=== PATIENT | female | born 1955 | race Caucasian/White ===

== ENCOUNTER → 2016-07-22 | Outpatient (CLI) | payer BC ==
--- NOTE | 2016-07-22 08:42 | US ---
EXAMINATION TYPE: US abdomen complete DATE OF EXAM: 07/22/2016 8:29 AM COMPARISON: NONE CLINICAL HISTORY: RUQ Pain. EXAM MEASUREMENTS: Liver Length: 16.7 cm Gallbladder Wall: 0.1 cm CBD: 0.4 cm Spleen: 7.7 cm Right Kidney: 10.8 x 4.2 x 4.8 cm Left Kidney: 10.9 x 5.0 x 4.9 cm cm Findings: Limited due to overlying bowel gas. Pancreas: Limited by bowel gas. The liver is homogenous. The intrahepatic portion of the IVC and proximal abdominal aorta are within normal limits. There is no evidence of cholelithiasis. Common bile duct is unremarkable. The visu alized portions of the pancreas are homogenous. The spleen is unremarkable. Kidneys are symmetric a nd free of hydronephrosis. No renal lesions are seen. IMPRESSION: 1. No acute process.
== END | disposition home or self-care (01) ==
LOC: RADUSWWP 07:27
PROVIDERS: ATTEND Family Medicine
DX: R10.11 Right upper quadrant pain (principal)
CPT/HCPCS: 76700

== ENCOUNTER → 2016-07-22 | Outpatient (CLI) | payer BC ==
--- NOTE | 2016-07-23 11:59 | MM ---
Reason for exam: screening (asymptomatic). Last mammogram was performed 3 years and 1 month ago. History: Patient is postmenopausal. Family history of breast cancer in mother. Benign left mammotome panel of the left breast, January 03, 2006. Taking estrogen beginning at age 52. Physical Findings: A clinical breast exam by your physician is recommended on an annual basis and results should be correlated with mammographic findings. MG Screening Mammo w CAD Bilateral CC and MLO view(s) were taken. Prior study comparison: June 18, 2013, bilateral digital screening mammo w/CAD. October 17, 2010, bilateral digital screening mammo w/CAD. The breast tissue is heterogeneously dense. This may lower the sensitivity of mammography. No significant changes when compared with prior studies. ASSESSMENT: Negative, BI-RAD 1 RECOMMENDATION: Routine screening mammogram of both breasts in 1 year.
== END | disposition home or self-care (01) ==
LOC: RADMAMWWP 07:23
PROVIDERS: ATTEND Obstetrics & Gynecology
DX: Z12.31 Encounter for screening mammogram for malignant neoplasm of breast (principal); Z80.3 Family history of malignant neoplasm of breast

== ENCOUNTER → 2018-02-26 | Day surgery (SDC) | payer BC ==
[2018-02-23 14:47] VITALS: BMI 24.7
[~2018-02-26] MED LIST: HYDROmorphone 1 MG/ML 1 ML SYRINGE IVP PRN; LACTATED RINGERS 1,000 ML IV SCH; LIDOCAINE 1% 20 ML VIAL (10MG/ML) FOR IV START INTRADERMA PRN; LIDOCAINE 1% INJ 10MG/ML (20 ML MDV) ONE; MIDAZOLAM 2 MG/2 ML VIAL IV PRN; PROPOFOL 10 MG/ML 20 ML VIAL IV ONE
--- NOTE | 2018-02-26 08:52 | P.PCN ---
Date of Procedure: 02/26/18 Procedure(s) Performed: Procedure: Esophagogastroduodenoscopy and biopsy. Preoperative diagnosis: Abdominal pain. Postoperative diagnosis: 1. Small sliding hiatal hernia with no obvious esophagitis or complicated reflux disease. 2. Mild antral gastritis. 3. Multiple biopsies obtained from the duodenum, antrum and esophagus. Preparation sedation: Was provided by anesthesia. Brief clinical history: The patient is a 62-year-old female who is scheduled for this evaluation because of upper abdominal complaints. She describes feeling distention and pressure after she eats but no change in bowel habits, nausea, vomiting or bleeding. She will have lost 5 pounds. She had a colonoscopy around 3 years ago which showed diverticulosis. This evaluation is to assess for potential ulcer disease, reflux disease or other pathology. Procedure: With the patient on her left lateral decubitus position and after informed consent and adequate sedation, I passed the Olympus-GIF 160 video upper endoscope through the cricopharyngeus down the esophagus. GE junction was around 36 cm from the incisors and there was a small sliding hiatal hernia but no obvious esophagitis or complicated reflux disease. The endoscope was then passed into the stomach which was insufflated with air and inspected in detail including the retroflex view in the cardia. There was minimal mottling and erythema in the antrum but no ulcers or erosions. Pyloric channel, duodenal bulb, post bulbar area and descending duodenum appeared within normal limits. Because of her symptoms, I obtained biopsies from the duodenum, antrum and esophagus then the endoscope was withdrawn. The patient tolerated the procedure well. Plan: The patient was reassured. She will follow-up with you as planned and I will be happy to see in the office if her symptoms persist.
[2018-02-26 08:55] VITALS: RESP 16
[2018-02-26 09:06] VITALS: BP 125/76; PULSE 60
== END | disposition home or self-care (01) ==
LOC: ORWHC2ENDO 07:28
DX: K29.50 Unspecified chronic gastritis without bleeding (principal); K44.9 Diaphragmatic hernia without obstruction or gangrene; K20.9 Esophagitis, unspecified; M19.90 Unspecified osteoarthritis, unspecified site; E78.5 Hyperlipidemia, unspecified; F41.9 Anxiety disorder, unspecified; Z79.899 Other long term (current) drug therapy
CPT/HCPCS: 88305; 43239; J2001; J2704

== ENCOUNTER → 2018-09-16 | Outpatient (CLI) | payer BC ==
--- NOTE | 2018-09-17 10:39 | MM ---
Reason for exam: screening (asymptomatic). Last mammogram was performed 2 years and 2 months ago. History: Patient is postmenopausal. Family history of breast cancer in mother. Benign left mammotome panel of the left breast, January 03, 2006. Taking estrogen beginning at age 52. Physical Findings: A clinical breast exam by your physician is recommended on an annual basis and results should be correlated with mammographic findings. MG 3D Screening Mammo W/Cad Bilateral CC and MLO view(s) were taken. Prior study comparison: July 22, 2016, bilateral MG screening mammo w CAD. June 18, 2013, bilateral digital screening mammo w/CAD. The breast tissue is heterogeneously dense. This may lower the sensitivity of mammography. Left biopsy marker noted. ASSESSMENT: Negative, BI-RAD 1 RECOMMENDATION: Routine screening mammogram of both breasts in 1 year.
== END ==
LOC: RADMAMWWP 07:56
PROVIDERS: ATTEND Family Medicine
DX: Z12.39 Encounter for other screening for malignant neoplasm of breast (principal)
CPT/HCPCS: 77063; 77067

== ENCOUNTER 2020-10-11 10:47 | Observation (INO) | payer BC ==
[2020-10-11 12:11] LABS: Basophils % (A) 1 %; Eosinophils # (A) 0.1 k/uL (0-0.7); Eosinophils % (A) 1 %; HCT 41.3 % (34.0-46.0); HGB 13.3 gm/dL (11.4-16.0); Lymphocytes # (A) 1.8 k/uL (1.0-4.8); Lymphocytes % (A) 32 %; MCH 30.1 pg (25.0-35.0); MCHC 32.2 g/dL (31.0-37.0); MCV 93.3 fL (80.0-100.0); Mean Platelet Volume 9.7; Monocytes # (A) 0.3 k/uL (0-1.0); Monocytes % (A) 6 %; Neutrophils # (A) 3.2 k/uL (1.3-7.7); Neutrophils % (A) 58 %; Platelet Count 190 k/uL (150-450); RBC 4.43 m/uL (3.80-5.40); RDW 13.5 % (11.5-15.5); WBC 5.6 k/uL (3.8-10.6)
--- NOTE | 2020-10-11 12:17 | XR ---
EXAMINATION TYPE: XR chest 2V DATE OF EXAM: 10/11/2020 COMPARISON: NONE HISTORY: Chest pain TECHNIQUE: Frontal and lateral views of the chest are obtained. FINDINGS: Heart size is within normal limits. No focal consolidation, pneumothorax or pleural effusi on. Hyperaeration of the lungs and flattening of the diaphragms suggestive of COPD. Degenerative chavez ges of the thoracic spine. IMPRESSION: 1. No evidence of acute pulmonary disease. 2. Findings are suggestive of COPD.
[2020-10-11 12:21] LABS: ALT 21 U/L (4-34); AST 37 U/L (14-36); African American GFR (CKD) >90 (>60 ml/min/1.73 sqM); Albumin 4.7 g/dL (3.5-5.0); Alkaline Phosphatase 116 U/L (38-126); Anion Gap 7 mmol/L; Blood Urea Nitrogen 12 mg/dL (7-17); Calcium 9.7 mg/dL (8.4-10.2); Carbon Dioxide 25 mmol/L (22-30); Chloride 109 mmol/L (98-107); Glucose 92 mg/dL (74-99); Magnesium 2.1 mg/dL (1.6-2.3); Non-African American GFR(CKD) >90 (>60 ml/min/1.73 sqM); Potassium 4.3 mmol/L (3.5-5.1); Sodium 141 mmol/L (137-145); Total Bilirubin 0.4 mg/dL (0.2-1.3); Total Protein 7.5 g/dL (6.3-8.2)
[2020-10-11] MEDS ORDERED: ASPIRIN 81 MG PO STA (12:33)
--- NOTE | 2020-10-11 12:39 | ED ---
Chest Pain HPI - General Chief Complaint: Chest Pain Stated Complaint: abnormal EKG Time Seen by Provider: 10/11/20 12:27 Source: patient, family, RN notes reviewed Mode of arrival: ambulatory Limitations: no limitations - History of Present Illness Initial Comments: This is a 64-year-old female presents emergency Department chief complaint abdominal chest pain. Patient states that the pain has been coming more frequent almost daily. Patient states she has no prior cardiac disease. Patient denies any lung disease. Patient states she does have hyperlipidemia and a strong family history. Patient states she had a stress test years ago which was normal. Patient denies any complaint of abdominal pain now but states that she's had some on-and-off pain and some cramping in her extremities. Denies any swelling. - Related Data Home Medications Medication Instructions Recorded Confirmed ALPRAZolam [Xanax] 0.25 mg PO DAILY PRN 02/23/18 10/11/20 Sertraline [Zoloft] 150 mg PO HS 02/23/18 10/11/20 Atorvastatin [Lipitor] 40 mg PO HS 10/11/20 10/11/20 Allergies Allergy/AdvReac Type Severity Reaction Status Date / Time No Known Allergies Allergy Verified 10/11/20 12:55 Review of Systems ROS Statement: Those systems with pertinent positive or pertinent negative responses have been documented in the HPI. ROS Other: All systems not noted in ROS Statement are negative. EKG Findings - EKG Comments: EKG Findings:: EKG at 1114 sinus bradycardia rate of 58 NM 166 QRS 60 QT/QTC 404/396 - EKG Results: EKG: interpreted by MOOKIE Past Medical History Past Medical History: Hyperlipidemia, Osteoarthritis (OA) Additional Past Medical History / Comment(s): bloating, stomach pains History of Any Multi-Drug Resistant Organisms: None Reported Past Surgical History: Tonsillectomy, Tubal Ligation Additional Past Surgical History / Comment(s): colonoscopy Past Anesthesia/Blood Transfusion Reactions: No Reported Reaction Past Psychological History: Anxiety Smoking Status: Never smoker Past Alcohol Use History: Occasional Past Drug Use History: Marijuana - Past Family History Mother Family Medical History: Cancer Brother(s) Family Medical History: Deep Vein Thrombosis (DVT) General Exam Limitations: no limitations General appearance: alert, in no apparent distress Head exam: Present: atraumatic, normocephalic, normal inspection Eye exam: Present: normal appearance, PERRL, EOMI. Absent: scleral icterus, conjunctival injection, periorbital swelling ENT exam: Present: normal exam, normal oropharynx, mucous membranes moist Neck exam: Present: normal inspection, full ROM. Absent: tenderness, meningismus, lymphadenopathy Respiratory exam: Present: normal lung sounds bilaterally. Absent: respiratory distress, wheezes, rales, rhonchi, stridor Cardiovascular Exam: Present: regular rate, normal rhythm, normal heart sounds. Absent: systolic murmur, diastolic murmur, rubs, gallop, clicks GI/Abdominal exam: Present: soft, normal bowel sounds. Absent: distended, tenderness, guarding, rebound, rigid Course Vital Signs 10/11/20 10/11/20 11:05 12:52 Temperature 97.6 F Pulse Rate 59 L 74 Respiratory 18 20 Rate Blood Pressure 155/94 154/75 O2 Sat by Pulse 97 97 Oximetry Chest Pain MDM - MDM 64 or chest pain no sore cup is negative patient will be admitted for cardiology evaluation Disposition Clinical Impression: Chest pain Disposition: ADMITTED IP TO THIS HOSP Condition: Fair Referrals: Anoop Lang DO [Primary Care Provider] - 1-2 days
[2020-10-11 12:44] LABS: INR 0.9 (<1.2); Prothrombin Time 9.7 sec (9.0-12.0)
[2020-10-11 12:47] LABS: Partial Thromboplastin Time 21.8 sec (22.0-30.0)
[2020-10-11] MEDS ORDERED: HEPARIN SODIUM 1,000 UN/ML (10ML VL) IV ONE (14:21)
[2020-10-11] MEDS ORDERED: NITROGLYCERIN SL TABS 0.4 MG TAB SUBLINGUAL PRN (14:21)
[2020-10-11] MEDS ORDERED: HEPARIN SOD,PORK IN 0.45% NACL 25,000 UNIT in 0.45% NACL 1 250ML.BAG IV SCH (14:30)
[2020-10-11] MEDS ORDERED: ALPRAZolam 0.25 MG TAB PO PRN (18:51)
[2020-10-11] MEDS ORDERED: ATORVASTATIN 40 MG TAB PO SCH (21:00)
[2020-10-11] MEDS ORDERED: SERTRALINE 50 MG TAB PO SCH (21:00)
--- NOTE | 2020-10-11 21:57 | P.HPIM ---
History of Present Illness This is a pleasant 64 years old female with past medical history of depression, hyperlipidemia. She is a patient of Dr. Lang Presents because of chest pain. Patient states that he went to see her PCP, [facility] Macie zhang working with Dr. Lang for regular checkup at medication referral. There she complained to her PCP from 1 month history of chest pain, little on the left side, nonradiating, with 6/10, reflux bowel, associated with little dyspnea and to from the brown phlegm for the last 2 weeks but no fever. Her PCP. EKG and referred her to emergency room. She denies abdominal pain, no nausea vomiting, no diarrhea. No dysuria or urgency. However patient complains from bilateral leg cramps She denies smoking, alcohol but she smokes marijuana. Vitas looks stable, blood pressure 170/87, heart rate 59-74. Labs including CBC, BMP, liver enzymes are unremarkable. INR 0.9. Troponin 1 is negative less than 0.012. Coronary first not detected. Chest x-ray: No acute process. COPD EKG: Sinus bradycardia at [address]-T changes In the emergency room patient was started on aspirin and heparin drip Review of Systems CONSTITUTIONAL: No fever, no malaise, no fatigue. HEENT: No recent visual problems or hearing problems. Denied any sore throat. CARDIOVASCULAR: No orthopnea, PND, no palpitations, no syncope. PULMONARY: No shortness of breath, no cough, no hemoptysis. GASTROINTESTINAL: No diarrhea, no nausea, no vomiting, no abdominal pain. Normoactive bowel sounds. NEUROLOGICAL: No headaches, no weakness, no numbness. HEMATOLOGICAL: Denies any bleeding or petechiae. GENITOURINARY: Denies any burning micturition, frequency, or urgency. MUSCULOSKELETAL/RHEUMATOLOGICAL: Denies any joint pain, swelling, or any muscle pain. ENDOCRINE: Denies any polyuria or polydipsia. Past Medical History Past Medical History: Hyperlipidemia, Osteoarthritis (OA) Additional Past Medical History / Comment(s): bloating, stomach pains History of Any Multi-Drug Resistant Organisms: None Reported Past Surgical History: Tonsillectomy, Tubal Ligation Additional Past Surgical History / Comment(s): colonoscopy Past Anesthesia/Blood Transfusion Reactions: No Reported Reaction Past Psychological History: Anxiety Smoking Status: Never smoker Past Alcohol Use History: Occasional Past Drug Use History: Marijuana - Past Family History Mother Family Medical History: Cancer Brother(s) Family Medical History: Deep Vein Thrombosis (DVT) Medications and Allergies Home Medications Medication Instructions Recorded Confirmed Type ALPRAZolam [Xanax] 0.25 mg PO DAILY PRN 02/23/18 10/11/20 History Sertraline [Zoloft] 150 mg PO HS 02/23/18 10/11/20 History Atorvastatin [Lipitor] 40 mg PO HS 10/11/20 10/11/20 History Allergies Allergy/AdvReac Type Severity Reaction Status Date / Time No Known Allergies Allergy Verified 10/11/20 12:55 Physical Exam Vitals: Vital Signs Temp Pulse Resp BP Pulse Ox 10/11/20 14:32 65 20 174/87 99 10/11/20 12:52 74 20 154/75 97 10/11/20 11:05 97.6 F 59 L 18 155/94 97 Intake and Output 10/11/20 10/11/20 10/11/20 06:59 14:59 22:59 Other: Weight 60.328 kg GENERAL: The patient is alert and oriented x3, not in any acute distress. Well developed, well nourished. HEENT: Pupils are round and equally reacting to light. EOMI. No scleral icterus. No conjunctival pallor. Normocephalic, atraumatic. No pharyngeal erythema. No thyromegaly. CARDIOVASCULAR: S1 and S2 present. No murmurs, rubs, or gallops. PULMONARY: Chest is clear to auscultation, no wheezing or crackles. ABDOMEN: Soft, nontender, nondistended, normoactive bowel sounds. No palpable organomegaly. MUSCULOSKELETAL: No joint swelling or deformity. EXTREMITIES: No cyanosis, clubbing, or pedal edema. NEUROLOGICAL: Gross neurological examination did not reveal any focal deficits. SKIN: No rashes. No petechiae Results CBC & Chem 7: 10/11/20 11:45 10/11/20 11:45 Labs: Abnormal Lab Results - Last 24 Hours (Table) 10/11/20 10/11/20 Range/Units 11:45 11:45 APTT 21.8 L (22.0-30.0) sec Chloride 109 H (98-107) mmol/L AST 37 H (14-36) U/L Assessment and Plan Assessment: Chest pain, rule out cardiac causes Essential hypertension, new-onset Hyperlipidemia Bilateral leg cramps, rule out DVT Plan: This is a pleasant 64 years old female who presents with chest pain. Continue with aspirin, and heparin drip. We'll do serial troponins. Cardiology consult on echocardiogram Doppler ultrasound of the lower extremity Labs and medication were reviewed.. Continue same treatment. Continue with symptomatic treatment. Resume home medication. Monitor lytes and vitals. DVT and GI prophylaxis. Further recommendations depends on the clinical course of the patient DVT prophylaxis: heparin GI Prophylaxis: Pepcid Prognosis is guarded
[2020-10-11] MEDS ORDERED: methylPREDNISolone SOD SUCCI 125 MG/2 ML VIAL IV STA (21:59)
[2020-10-11] MEDS ORDERED: amLODIPine 5 MG TAB PO SCH (22:00)
[2020-10-11] MEDS ORDERED: DOXYCYCLINE 100 MG CAP PO SCH (22:00)
[2020-10-11] MEDS ORDERED: AZITHROMYCIN 500 MG in SODIUM CHLORIDE 0.9% 250 ML IVPB SCH (22:15)
--- NOTE | 2020-10-11 22:56 | US ---
EXAMINATION TYPE: US venous doppler duplex LE DATE OF EXAM: 10/11/2020 10:42 PM COMPARISON: NONE CLINICAL HISTORY: Rule out DVT. Leg pain intermittently. No hx of DVT. Patient does not take blood th inners. SIDE PERFORMED: Bilateral TECHNIQUE: The lower extremity deep venous system is examined utilizing real time linear array sonog bar with graded compression, doppler sonography and color-flow sonography. VESSELS IMAGED: Common Femoral Vein Deep Femoral Vein Greater Saphenous Vein * Femoral Vein Popliteal Vein Small Saphenous Vein * Proximal Calf Veins (* superficial vessels) Right Leg: No evidence of DVT in veins imaged at this time. Left Leg: No evidence of DVT in veins imaged at this time. IMPRESSION: No evidence of deep vein thrombosis in both legs.
[2020-10-11] MEDS ORDERED: ONDANSETRON 4 MG/2 ML VIAL IVP PRN (23:54)
[2020-10-12 06:18] LABS: D-Dimer 0.29 mg/L FEU (<0.60); Partial Thromboplastin Time 38.5 sec (22.0-30.0)
--- NOTE | 2020-10-12 06:48 | ECHOF ---
Referral Reason:chest pain MEASUREMENTS -------- HEIGHT: 154.9 cm WEIGHT: 60.3 kg BP: 154/75 RVIDd: 2.7 cm (< 3.3) IVSd: 0.9 cm (0.6 - 1.1) LVIDd: 4.4 cm (3.9 - 5.3) LVPWd: 0.9 cm (0.6 - 1.1) IVSs: 1.6 cm LVIDs: 2.5 cm LVPWs: 1.4 cm LA Diam: 2.8 cm (2.7 - 3.8) Ao Diam: 2.8 cm (2.0 - 3.7) AV Cusp: 1.8 cm (1.5 - 2.6) MV EXCURSION: 14.317 mm (> 18.000) MV EF SLOPE: 106 mm/s (70 - 150) EPSS: 0.2 cm MV E Ramiro: 1.30 m/s MV DecT: 208 ms MV A Ramiro: 1.12 m/s MV E/A Ratio: 1.16 RAP: 5.00 mmHg RVSP: 33.54 mmHg FINDINGS -------- Sinus rhythm. This was a technically good study. The left ventricular size is normal. Left ventricular wall thickness is normal. Overall left vent ricular systolic function is normal with, an EF between 55 - 60 %. The right ventricle is normal in size. The left atrium is normal in size. The right atrium is normal in size. Interatrial and interventricular septum intact. Aortic valve is trileaflet and is mildly thickened. Trace amount of aortic regurgitation. Mild mitral regurgitation is present. Mild tricuspid regurgitation present. Right ventricular systolic pressure is normal at < 35 mmHg. Trace/mild (physiologic) pulmonic regurgitation. The aortic root size is normal. Normal inferior vena cava with normal inspiratory collapse consistent with estimated right atrial pre ssure of 5 mmHg. There is no pericardial effusion. CONCLUSIONS -------- 1. The left ventricular size is normal. 2. Left ventricular wall thickness is normal. 3. Aortic valve is trileaflet and is mildly thickened. 4. Trace amount of aortic regurgitation. 5. Mild mitral regurgitation is present. 6. Mild tricuspid regurgitation present. 7. Trace/mild (physiologic) pulmonic regurgitation. 8. There is no pericardial effusion. MANAGER OF RADIOLOGY: Savita Avilez RDCS
[2020-10-12 07:42] VITALS: BP 128/76; PULSE 77; RESP 18; TEMP 98.2
[2020-10-12] MEDS ORDERED: BUDESONIDE 0.5 MG/2 ML NEBU INHALATION SCH (08:00)
[2020-10-12] MEDS ORDERED: ASPIRIN 325 MG TAB PO SCH (09:00)
--- NOTE | 2020-10-12 10:04 | P.CRDCN ---
History of Present Illness History of present illness: HISTORY OF PRESENTING ILLNESS This is a pleasant 64-year-old female past medical history significant for hyperlipidemia. She does not follow with a strap maker. We have been aske d to see in consultation for chest pain. Patient states that she's been having intermittent left-sided chest pain for 3 months. Yesterday she went to her primary care physician she continued to have left-sided chest pain. She states that her primary care physician said her EKG was slightly abnormal and recommended that she go to the emergency department, stating it might take too long for her to see a strap maker. She did have associated dyspnea. Patient denies diaphoresis, nausea, palpitations, fatigue, lightheadedness, or dizziness . Pain is nonradiating, pain is nonexertional. Patient is seen and examined at bedside, no acute distress. Aggravating symptoms include cough. Nothing in particular makes the pain better. Severity of pain 5-6/10. She denies any symptoms of orthopnea PND. She is a nonsmoker, nondiabetic. Only home medications include atorvastatin 40 mg nightly, Zoloft 150 mg nightly, Xanax 0.25 mg when necessary. Patient was hypertensive on admission BP 154/75, 174/87. Patient started on amlodipine 5mg daily DIAGNOSTICS Echocardiogram 10/12/20EF between 55-60%, mild mitral regurgitation, mild tricuspid regurgitation EKG reveals sinus bradycardia, heart rate 58, no significant STT wave abnormalities Telemetry tracings indicate sinus mechanism, heart rate 60s-80s, no ectopy or arrhythmia noted. Chest xray hyperinflation of lungs with flattening of the diaphragms suggestive of COPD. Venous Dopplers negative for DVT. Laboratory reviewed, troponin negative 3, d-dimer negative, CBC unremarkable, sodium 141, potassium 4.3, serum creatinine 0.62, magnesium 2.1, COVID-19 negative. REVIEW OF SYSTEMS At the time of my exam: CONSTITUTIONAL: Denies fever or chills. CARDIOVASCULAR: + chest pain,+ shortness of breath, Denies orthopnea, PND or palpitations. RESPIRATORY: Denies cough. GASTROINTESTINAL: Denies abdominal pain, diarrhea, constipation, nausea or vomiting. MUSCULOSKELETAL: Denies myalgias. NEUROLOGIC: Denies numbness, tingling, headacbe or weakness. ENDOCRINE: Denies fatigue, weight change, polydipsia or polyurina. GENITOURINARY: Denies burning, hematuria or urgency with micturation. HEMATOLOGIC: Denies history of anemia or bleeding. PHYSICAL EXAMINATION Blood pressure 119/74 heart rate 69 afebrile and maintaining oxygen saturation 97% on room air CONSTITUTIONAL: No apparent distress. HEENT: Head is normocephalic. Pupils are equal, round. Sclerae anicteric. Mucous membranes of the mouth are moist. No JVD. No carotid bruit. CHEST EXAMINATION: Lungs are clear to auscultation. No chest wall tenderness is noted on palpation or with deep breathing. HEART EXAMINATION: Regular rate and rhythm. S1, S2 heard. No murmurs, gallops or rub. ABDOMEN: Soft, nontender. Positive bowel sounds. EXTREMITIES: 2+ peripheral pulses, no lower extremity edema and no calf tenderness. SKIN: intact NEUROLOGIC EXAMINATION: Patient is awake, alert and oriented x3. ASSESSMENT Chest pain, atypical, acute coronary syndrome has been ruled out. Negative cardiac enzymes. No ischemia noted on EKG Hyperlipidemia Hypertension - patient started on amlodipine 5mg daily PLAN An acute coronary event has been ruled out with no EKG evidence of ischemia and negative cardiac enzymes. 2D echo obtained and reviewed with no acute findings Perform stress echo test to assess for stress induced cardiac ischemia. If abnormal will consider coronary angiography. If stress echo with no acute findings patient can be discharged from cardiology perspective Thank you kindly for this consultation. Nurse Practitioner note has been reviewed, I agree with a documented findings and plan of care. Patient was seen and examined. Past Medical History Past Medical History: Hyperlipidemia, Osteoarthritis (OA) Additional Past Medical History / Comment(s): bloating, stomach pains History of Any Multi-Drug Resistant Organisms: None Reported Past Surgical History: Tonsillectomy, Tubal Ligation Additional Past Surgical History / Comment(s): colonoscopy Past Anesthesia/Blood Transfusion Reactions: No Reported Reaction Past Psychological History: Anxiety Smoking Status: Never smoker Past Alcohol Use History: Occasional Past Drug Use History: Marijuana - Past Family History Mother Family Medical History: Cancer Brother(s) Family Medical History: Deep Vein Thrombosis (DVT) Medications and Allergies Home Medications Medication Instructions Recorded Confirmed Type ALPRAZolam [Xanax] 0.25 mg PO DAILY PRN 02/23/18 10/11/20 History Sertraline [Zoloft] 150 mg PO HS 02/23/18 10/11/20 History Atorvastatin [Lipitor] 40 mg PO HS 10/11/20 10/11/20 History Allergies Allergy/AdvReac Type Severity Reaction Status Date / Time No Known Allergies Allergy Verified 10/11/20 12:55 Physical Exam Vitals: Vital Signs Temp Pulse Pulse Resp BP BP Pulse Ox 10/12/20 07:00 98.2 F 77 18 128/76 94 L 10/12/20 02:10 56 L 16 10/12/20 00:34 97.9 F 69 16 119/74 97 10/11/20 22:41 56 L 16 10/11/20 20:26 98.3 F 56 L 16 145/82 95 10/11/20 17:38 65 20 148/79 98 10/11/20 14:32 65 20 174/87 99 10/11/20 12:52 74 20 154/75 97 10/11/20 11:05 97.6 F 59 L 18 155/94 97 Intake and Output 10/11/20 10/12/20 10/12/20 22:59 06:59 14:59 Other: Voiding Method Toilet Toilet # Voids 1 2 Weight 60.328 kg Results 10/11/20 11:45 10/11/20 11:45 Cardiac Enzymes 10/11/20 10/11/20 10/11/20 Range/Units 11:45 11:45 15:04 AST 37 H (14-36) U/L Troponin I <0.012 <0.012 (0.000-0.034) ng/mL 10/11/20 Range/Units 17:51 AST (14-36) U/L Troponin I <0.012 (0.000-0.034) ng/mL Coagulation 10/11/20 10/11/20 10/12/20 Range/Units 11:45 20:42 05:18 PT 9.7 (9.0-12.0) sec APTT 21.8 L 44.2 H 38.5 H (22.0-30.0) sec CBC 10/11/20 Range/Units 11:45 WBC 5.6 (3.8-10.6) k/uL RBC 4.43 (3.80-5.40) m/uL Hgb 13.3 (11.4-16.0) gm/dL Hct 41.3 (34.0-46.0) % Plt Count 190 (150-450) k/uL Comprehensive Metabolic Panel 10/11/20 Range/Units 11:45 Sodium 141 (137-145) mmol/L Potassium 4.3 (3.5-5.1) mmol/L Chloride 109 H (98-107) mmol/L Carbon Dioxide 25 (22-30) mmol/L BUN 12 (7-17) mg/dL Creatinine 0.62 (0.52-1.04) mg/dL Glucose 92 (74-99) mg/dL Calcium 9.7 (8.4-10.2) mg/dL AST 37 H (14-36) U/L ALT 21 (4-34) U/L Alkaline Phosphatase 116 (38-126) U/L Total Protein 7.5 (6.3-8.2) g/dL Albumin 4.7 (3.5-5.0) g/dL Current Medications Generic Name Dose Route Start Last Admin Trade Name Freq PRN Reason Stop Dose Admin Alprazolam 0.25 mg 10/11/20 18:51 10/11/20 18:54 Alprazolam 0.25 Mg Tab PO 0.25 mg DAILY PRN Administration Anxiety Amlodipine Besylate 5 mg 10/11/20 22:00 10/11/20 22:41 Amlodipine 5 Mg Tab PO 5 mg DAILY@2100 VARINDER Administration Aspirin 325 mg 10/12/20 09:00 10/12/20 08:00 Aspirin 325 Mg Tab PO 325 mg DAILY VARINDER Administration Atorvastatin Calcium 40 mg 10/11/20 21:00 10/11/20 21:29 Atorvastatin 40 Mg Tab PO 40 mg HS VARINDER Administration Budesonide 0.5 mg 10/12/20 08:00 10/12/20 07:56 Budesonide 0.5 Mg/2 Ml Nebu INHALATION Not Given RT-BID VARINDER Heparin Sodium/Sodium Chloride 250 mls @ 7.239 mls/hr 10/11/20 14:30 10/11/20 14:53 25,000 unit/ Sodium Chloride IV 12 units/kg/hr .Q24H VARINDER 7.239 mls/hr Administration Protocol 12 UNITS/KG/HR Azithromycin 500 mg/ Sodium 250 mls @ 250 mls/hr 10/11/20 22:15 10/11/20 22:41 Chloride IVPB 250 mls/hr DAILY@2100 VARINDER Administration Nitroglycerin 0.4 mg 10/11/20 14:21 Nitroglycerin Sl Tabs 0.4 Mg Tab SUBLINGUAL Q5M PRN Chest Pain Ondansetron HCl 4 mg 10/11/20 23:54 10/12/20 00:03 Ondansetron 4 Mg/2 Ml Vial IVP 4 mg Q6HR PRN Administration Nausea And Vomiting Sertraline HCl 150 mg 10/11/20 21:00 10/11/20 21:29 Sertraline 50 Mg Tab PO 150 mg HS VARINDER Administration Intake and Output 10/11/20 10/12/20 10/12/20 22:59 06:59 14:59 Other: Voiding Method Toilet Toilet # Voids 1 2 Weight 60.328 kg 10/11/20 11:45 10/11/20 11:45
[2020-10-12 12:06] LABS: Chol/HDL Ratio 2.31
--- NOTE | 2020-10-12 12:35 | P.STRESS ---
- Stress Test Note Stress Test Results/Findings: Exam Performed: stress echo exercise Exam Date: 10/12/20 Reason for Exam: Chest pain Height: 5 ft 1 in Weight: 60.328 kg Protocol: Santos Stage: II Duration of Exercise: 6:00 Resting Heart Rate: 76 Resting Blood Pressure: 131/62 Maximum Achieved Heart Rate: 144 Maximum Achieved Blood Pressure: 162/90 85% PMHR: 133 100% PMHR: 156 METS: 7.3 Technologist Comment: Stress Test Results/Findings: She is a 64-year-old female with history of palpitations and hypercholesterolemia being evaluated for symptoms of chest pain. Blood pressure at rest is 131/62 with a pulse rate of 76. Patient works on a Santos protocol for 6 minutes achieving a maximal heart rate of 144, and blood pressure 160/90. EKGs taken during and after exercise did not reveal any changes of ischemia. Patient did not experience any chest pain but became short of breath. Echo data: Baseline echo images show normal wall motion and thickening. Exercise echo images showed augmentation of wall motion and thickening in all the segments. Final impression: #1. Negative stress test #2. Negative stress echo.
--- NOTE | 2020-10-13 00:04 | P.DS ---
Providers Date of admission: 10/11/20 15:53 Attending physician: Sean Salas MD Consults: 10/11/20 14:21 Consult Physician Urgent Consulting Provider: Gunnar Zamorano Consult Reason/Comments: chest pain Do you want consulting provider notified?: Yes Primary care physician: Anoop Lang Hospital Course: Diagnoses: Chest pain, negative stress test, d-dimer negative, improving Mild bronchitis Essential hypertension, new-onset Hyperlipidemia Bilateral leg cramps, ultrasound of the legs is negative for DVT Hospital course: This is a pleasant 64 years old female with past medical history of depression, hyperlipidemia. She is a patient of Dr. Lang Presents because of chest pain. Patient states that he went to see her PCP, [facility] [employer] Macie zhang working with Dr. Lang for regular checkup at medication referral. There she complained to her PCP from 1 month history of chest pain. She has been evaluated by shipper receiver and had negative stress test. D-dimer was negative as well at 0.29 No other complaints Patient started on Zithromax 250 mg for 4 days for bronchitis and recommended to follow-up with corporate counselor Dr. Hernandez as chest x-ray showed possible COPD changes and patient did not smoke except for 2 years when she was a teenager Problems and management plan were discussed with the patient and he verbalized understanding and acceptance Patient was found stable and can be discharged home however he needs follow-up as an outpatient. Patient was instructed to follow up with PCP Dr. Lang within one week and patient agrees She was instructed to follow up with Dr. Gary in 1-2 weeks and also with corporate counselor for her bronchitis Dr. Hernandez as an outpatient in 1 week and she agrees to call and make her on appointments Physical exam Gen: patient is a AAOx3, no distress CVS: S1-S2, RRR, no murmur Lungs: B/L CTA, no wheezing Abdomen: soft, no distention, no tenderness, positive bowel sounds Extremity: no leg edema or induration Time spent more than 35 minutes Patient Condition at Discharge: Fair Plan - Discharge Summary Discharge Rx Participant: No New Discharge Prescriptions: New amLODIPine [Norvasc] 5 mg PO DAILY@2100 #30 tab Azithromycin [Zithromax] 250 mg PO DAILY 4 Days #4 tab Continue Sertraline [Zoloft] 150 mg PO HS ALPRAZolam [Xanax] 0.25 mg PO DAILY PRN PRN Reason: Anxiety Atorvastatin [Lipitor] 40 mg PO HS Discharge Medication List ALPRAZolam [Xanax] 0.25 mg PO DAILY PRN 02/23/18 [History] Sertraline [Zoloft] 150 mg PO HS 02/23/18 [History] Atorvastatin [Lipitor] 40 mg PO HS 10/11/20 [History] Azithromycin [Zithromax] 250 mg PO DAILY 4 Days #4 tab 10/12/20 [Rx] amLODIPine [Norvasc] 5 mg PO DAILY@2100 #30 tab 10/12/20 [Rx] Follow up Appointment(s)/Referral(s): Bro Hernandez MD [STAFF PHYSICIAN] - 1 Week ([employer] for your bronchitis) Damian Gary MD [STAFF PHYSICIAN] - 2 Weeks (will call pt to set up appointment) Anoop Lang DO [Primary Care Provider] - 1-2 days Patient Instructions/Handouts: Chest Pain (DC) Activity/Diet/Wound Care/Special Instructions: Heart healthy diet Activity is restricted until you see your doctor Discharge Disposition: HOME SELF-CARE
[2020-10-13] MEDS ORDERED: AZITHROMYCIN 500 MG TAB PO SCH (21:00)
== END 2020-10-12 14:21 | disposition home or self-care (01) ==
LOC: EC 10:47 → 6NMEDSUR 15:53
PROVIDERS: ADMIT Internal Medicine; ATTEND Internal Medicine
DX: R07.9 Chest pain, unspecified (principal); J40 Bronchitis, not specified as acute or chronic; J44.9 Chronic obstructive pulmonary disease, unspecified; I10 Essential (primary) hypertension; E78.5 Hyperlipidemia, unspecified; R25.2 Cramp and spasm; R00.1 Bradycardia, unspecified; F41.9 Anxiety disorder, unspecified; F12.90 Cannabis use, unspecified, uncomplicated; M19.90 Unspecified osteoarthritis, unspecified site; Z20.822 Contact with and (suspected) exposure to COVID-19; Z98.51 Tubal ligation status; Z79.899 Other long term (current) drug therapy; Z80.9 Family history of malignant neoplasm, unspecified; Z83.2 Family history of diseases of the blood and blood-forming organs and certain disorders involving the immune mechanism
CPT/HCPCS: 96366 ×3; 96367; 96375; 96368; 96365; 99285; 36415; 93005; 93306; 93351; 85379; 80061; 80053; 83735; 84484; 85025; 85610; 85730 ×2; 87635; 71046; 93970; G0378 ×2; J2405; J0456; J1644 ×2

== ENCOUNTER → 2022-03-12 | Outpatient (CLI) | payer MEDICARE, BC ==
--- NOTE | 2022-03-13 09:44 | MM ---
Reason for Exam: Screening (asymptomatic). Last mammogram was performed 3 year(s) and 6 month(s) ago. Patient History: Menarche at age 12. First Full-Term at age 20. Postmenopausal. Currently using Estrogen, starting at age 52. 01/03/2006, Benign Core Biopsy on the left side. Mother had breast cancer. Risk Values: Veronika 5 year model risk: 3.8%. NCI Lifetime model risk: 13.2%. Prior Study Comparison: 06/18/2013 Bilateral Screening Mammogram, [facility]. 07/22/2016 Bilateral Screening Mammogram, [facility]. 09/16/2018 Bilateral Screening Mammogram, [facility]. Tissue Density: The breast tissue is heterogeneously dense. This may lower the sensitivity of mammography. Findings: Analyzed By CAD. There is no suspicious group of microcalcifications or new suspicious mass in either breast. Biopsy clip within the left breast. No significant change from prior exams. Overall Assessment: Benign, BI-RAD 2 Management: Screening Mammogram of both breasts in 1 year. A clinical breast exam by your physician is recommended on an annual basis and results should be correlated with mammographic findings. Electronically signed and approved by: Jason Wong D.O.
--- NOTE | 2022-03-13 09:44 | MM ---
Reason for Exam: Screening (asymptomatic). Last mammogram was performed 3 year(s) and 6 month(s) ago. Patient History: Menarche at age 12. First Full-Term at age 20. Postmenopausal. Currently using Estrogen, starting at age 52. 01/03/2006, Benign Core Biopsy on the left side. Mother had breast cancer. Risk Values: Veronika 5 year model risk: 3.8%. NCI Lifetime model risk: 13.2%. Prior Study Comparison: 06/18/2013 Bilateral Screening Mammogram, [facility]. 07/22/2016 Bilateral Screening Mammogram, [facility]. 09/16/2018 Bilateral Screening Mammogram, [facility]. Tissue Density: The breast tissue is heterogeneously dense. This may lower the sensitivity of mammography. Findings: Analyzed By CAD. There is no suspicious group of microcalcifications or new suspicious mass in either breast. Biopsy clip within the left breast. No significant change from prior exams. Overall Assessment: Benign, BI-RAD 2 Management: Screening Mammogram of both breasts in 1 year. A clinical breast exam by your physician is recommended on an annual basis and results should be correlated with mammographic findings. Electronically signed and approved by: Jason Wong D.O.
== END | disposition home or self-care (01) ==
LOC: RADMAMWWP 08:31
PROVIDERS: ATTEND Family Medicine
DX: Z12.31 Encounter for screening mammogram for malignant neoplasm of breast (principal); Z78.0 Asymptomatic menopausal state; Z80.3 Family history of malignant neoplasm of breast
CPT/HCPCS: 77063; 77067

== ENCOUNTER → 2024-09-17 | Outpatient (CLI) | payer MEDICARE, BC ==
--- NOTE | 2024-09-17 08:12 | MM ---
Reason for Exam: Screening (asymptomatic). Last mammogram was performed 2 year(s) and 6 month(s) ago. Patient History: Menarche at age 12. First Full-Term at age 20. Postmenopausal. Currently using Estrogen, starting at age 52. 01/03/2006, Benign Core Biopsy on the left side. Mother had breast cancer. Risk Values: Veronika 5 year model risk: 3.8%. NCI Lifetime model risk: 12.1%. Prior Study Comparison: 07/22/2016 Bilateral Screening Mammogram, [facility]. 09/16/2018 Bilateral Screening Mammogram, [facility]. 03/12/2022 Bilateral MG 3D screening mammo w/cad, [facility]. Tissue Density: The breasts are heterogeneously dense, which may obscure small masses. Findings: Analyzed By CAD. There is no suspicious group of microcalcifications or new suspicious mass in either breast. Overall Assessment: Negative, BI-RAD 1 Management: Screening Mammogram of both breasts in 1 year. . Patient should continue monthly self-breast exams. A clinical breast exam by your physician is recommended on an annual basis. This exam should not preclude additional follow-up of suspicious palpable abnormalities. Note on Veronika scores and lifetime risk: 1. A Veronika score greater than 3% is considered moderate risk. If this is the case, consider specialist referral to assess eligibility for a risk reducing agent. 2. If overall lifetime risk for the development of breast cancer is 20% or higher, the patient may qualify for future screening with alternating mammogram and breast MRI. [facility], , 09/17/2024 8:10 AM. Electronically signed and approved by: Nasim Quiles M.D. Radiologis
== END | disposition home or self-care (01) ==
LOC: RADMAMWWP 07:42
PROVIDERS: ATTEND Family Medicine
DX: Z12.31 Encounter for screening mammogram for malignant neoplasm of breast (principal); R92.333 Mammographic heterogeneous density, bilateral breasts; Z78.0 Asymptomatic menopausal state; Z80.3 Family history of malignant neoplasm of breast
CPT/HCPCS: 77063; 77067